=== PATIENT | male | born 1970 | race American Indian/Alaskan Native ===

== ENCOUNTER 2021-08-24 11:45 | Emergency (ER) | payer OTHER ==
[2021-08-24] MEDS ORDERED: LIDOCAINE 1% MPF 5 ML VIAL ONE (13:30)
[2021-08-24] MEDS ORDERED: TETANUS & DIPHTHERIA TOX,ADULT 0.5 ML VIAL ONE (13:31)
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
[2021-08-24] MEDS ORDERED: NITROFURAN MACRO 100 MG CAP PO ONE (14:18)
[2021-08-24] MEDS ORDERED: DOXYCYCLINE 100 MG CAP PO ONE (14:20)
[2021-08-24 14:54] VITALS: TEMP 99.1
[2021-08-24 14:55] VITALS: O2SAT 100
[2021-08-24 14:57] VITALS: BP 130/87
== END 2021-08-24 14:49 | disposition home or self-care (01) ==
LOC: ER 11:45
PROC: 0JQN0ZZ Repair Right Lower Leg Subcutaneous Tissue and Fascia, Open Approach (ICD-10-PCS; principal; 2021-08-24)
DX: S81.811A Laceration without foreign body, right lower leg, initial encounter (principal); S80.812A Abrasion, left lower leg, initial encounter; W22.8XXA Striking against or struck by other objects, initial encounter; Y92.814 Boat as the place of occurrence of the external cause; Y99.8 Other external cause status; Z23 Encounter for immunization; E11.9 Type 2 diabetes mellitus without complications
CPT/HCPCS: 90471; 90714; 99284

== ENCOUNTER 2021-09-07 11:15 | Emergency (ER) | payer OTHER ==
--- NOTE | 2021-09-07 12:16 | ER ---
Nurse's Notes [facility] Name: Ander Young Age: 50 yrs Sex: Male : 1970 Arrival Date: 09/07/2021 Time: 11:18 Bed 16 Private MD: Diagnosis: Encounter for removal of sutures Presentation: 09/07 11:36 Chief complaint: Patient states: "I need my sutures removed form my right calf and i ab2 need my left leg checked. I keep having muscle spasms." Pt denies pain. Coronavirus screen: Vaccine status: Patient reports receiving the 2nd dose of the covid vaccine. Client denies travel out of the [place] in the last 14 days. At this time, the client does not indicate any symptoms associated with coronavirus-19. Ebola Screen: Patient negative for fever greater than or equal to 101.5 degrees Fahrenheit, and additional compatible Ebola Virus Disease symptoms Patient denies exposure to infectious person. Patient denies travel to an Ebola-affected area in the 21 days before illness onset. No symptoms or risks identified at this time. Initial Sepsis Screen: Does the patient meet any 2 criteria? No. Patient's initial sepsis screen is negative. Does the patient have a suspected source of infection? No. Patient's initial sepsis screen is negative. Risk Assessment: Do you want to hurt yourself or someone else? Patient reports no desire to harm self or others. Onset of symptoms is unknown. 11:36 Method Of Arrival: Ambulatory ab2 11:36 Acuity: CL 4 ab2 Triage Assessment: 11:38 General: Appears in no apparent distress. comfortable, Behavior is calm, cooperative, ab2 appropriate for age. Pain: Denies pain. Musculoskeletal: Reports spasms to left leg. Historical: - Allergies: 11:38 No Known Allergies; ab2 - PMHx: 11:38 diabetes mellitus ; borderline; ab2 - PSHx: 11:38 None; ab2 - Immunization history:: Adult Immunizations up to date. - Social history:: Smoking status: Patient denies any tobacco usage or history of. Screenin:42 Abuse screen: Denies threats or abuse. Denies injuries from another. Nutritional bp screening: No deficits noted. Tuberculosis screening: No symptoms or risk factors identified. Fall Risk None identified. Assessment: 11:42 General: SEE TRIAGE NOTE. Neuro: Gait is steady. bp 12:29 Reassessment: PT D/C HOME AMBULATORY, DX WITH SUTURE REMOVAL. bp Vital Signs: 11:36 BP 133 / 90; Pulse 87; Resp 17; Temp 98.9(TE); Pulse Ox 99% on R/A; Weight 82 kg; ab2 Height 5 ft. 10 in. (179 cm); Pain 0/10; 11:36 Body Mass Index 25.59 (82.00 kg, 179 cm) ab2 ED Course: 11:18 Patient arrived in ED. ds1 11:38 Triage completed. ab2 11:39 Arm band placed on right wrist. ab2 11:42 Harpreet Han, RN is Primary Nurse. bp 11:42 Johan Colunga NP is PHCP. pm1 11:42 Hong Doss MD is Attending Physician. pm1 11:42 Patient has correct armband on for positive identification. Bed in low position. Call bp light in reach. Side rails up X2. 12:29 No provider procedures requiring assistance completed. bp 12:29 Patient did not have IV access during this emergency room visit. bp Administered Medications: No medications were administered Outcome: 12:16 Discharge ordered by MD. pm1 12:29 Discharged to home ambulatory. bp 12:29 Condition: stable 12:29 Discharge instructions given to patient, Instructed on discharge instructions, follow up and referral plans. wound care, Demonstrated understanding of instructions, follow-up care, wound care. 12:55 Patient left the ED. bp Signatures: Tiesha Victor ds1 Johan Colunga NP WASHING MACHINE STRIPER pm1 Harpreet Han, RN RN bp Len Reina ab2
--- NOTE | 2021-09-07 12:16 | EDPHYS ---
Physician Documentation [facility] Name: Ander Young Age: 50 yrs Sex: Male : 1970 Arrival Date: 09/07/2021 Time: 11:18 Bed 16 Private MD: ABILIO Physician Hong Doss HPI: 09/07 12:14 This 50 yrs old Male presents to ER via Ambulatory with complaints of pm1 Suture Removal. 12:14 The patient has sutures on the right ba. Previous treatment: The patient was pm1 initially treated 14 day(s) ago, the care was rendered at [facility], Treatment type: The patient's original treatment included sutures, Outpatient prescription(s): The patient was given prescription(s) for Doxycycline. Sutures/danny progress: The patient has no c/o's. The wound is well-healing with no redness, swelling, discharge, or dehiscence reported. The patient has not experienced similar symptoms in the past. The patient has not recently seen a physician. Patient presenting to the ER with complaint of suture removal. Patient was seen here 2 weeks ago for abrasion and laceration. Laceration was not fully closed due to type of injury and duration of being open. A single suture was placed in the central area of laceration to approximate the wound and allow draining and the prevention of infection. Patient reports no complaints with healing of the wound and would like the suture removed.. Historical: - Allergies: 11:38 No Known Allergies; ab2 - PMHx: 11:38 diabetes mellitus ; borderline; ab2 - PSHx: 11:38 None; ab2 - Immunization history:: Adult Immunizations up to date. - Social history:: Smoking status: Patient denies any tobacco usage or history of. ROS: 12:14 Constitutional: Negative for fever, chills, and weight loss, Cardiovascular: Negative pm1 for chest pain, palpitations, and edema, Respiratory: Negative for shortness of breath, cough, wheezing, and pleuritic chest pain, MS/Extremity: Negative for injury and deformity. 12:14 Neuro: Negative for headache, weakness, numbness, tingling, and seizure. 12:14 Skin: Negative for abscesses, cellulitis. 12:14 All other systems are negative. Exam: 12:14 Constitutional: This is a well developed, well nourished patient who is awake, alert, pm1 and in no acute distress. Head/Face: Normocephalic, atraumatic. 12:14 Back: No spinal tenderness. No costovertebral tenderness. Full range of motion. MS/ Extremity: Pulses equal, no cyanosis. Neurovascular intact. Full, normal range of motion. 12:14 Cardiovascular: Exam negative for acute changes, Rate: normal, Rhythm: regular, Pulses: no pulse deficits are appreciated. 12:14 Respiratory: Exam negative for acute changes, respiratory distress, shortness of breath. 12:14 Skin: Wound recheck: Suture laceration closure: the wound is healing well, no evidence of dehiscence, no drainage, no erythema, no swelling, Area well-healed with scar tissue. 12:14 Neuro: Exam negative for acute changes, Orientation: is normal, Mentation: is normal, Motor: is normal, moves all fours. Vital Signs: 11:36 BP 133 / 90; Pulse 87; Resp 17; Temp 98.9(TE); Pulse Ox 99% on R/A; Weight 82 kg; ab2 Height 5 ft. 10 in. (179 cm); Pain 0/10; 11:36 Body Mass Index 25.59 (82.00 kg, 179 cm) ab2 Procedures: 12:14 Suture/Staple removal: Removed 1 sutures, from right ba, site appears well healed, pm1 dressed with Neosporin, Patient tolerated well. MDM: 11:43 Patient medically screened. [facility] 12:14 Data reviewed: vital signs. Data interpreted: Pulse oximetry: on room air is 99 %. pm1 Interpretation: normal. Counseling: I had a detailed discussion with the patient and/or guardian regarding: the historical points, exam findings, and any diagnostic results supporting the discharge/admit diagnosis. Administered Medications: No medications were administered Disposition Summary: 09/07/21 12:16 Discharge Ordered Location: Home pm1 Problem: new pm1 Symptoms: have improved pm1 Condition: Stable pm1 Diagnosis - Encounter for removal of sutures pm1 Followup: pm1 - With: Emergency Department - When: As needed - Reason: Worsening of condition Followup: pm1 - With: Private Physician - When: 2 - 3 days - Reason: Recheck today's complaints, Continuance of care, Re-evaluation by your physician Discharge Instructions: - Discharge Summary Sheet pm1 - Suture Removal, Care After pm1 Forms: - Medication Reconciliation Form pm1 - Thank You Letter pm1 - Antibiotic Education pm1 - Prescription Opioid Use pm1 Addendum: 09/10/2021 07:13 Co-signature as Attending Physician, Hong Doss MD I agree with the assessment and c begum plan of care. Signatures: Hong Doss, Johan Marquez MD, cha, DIRECTOR CUSTOMER DIRECTOR CUSTOMER pm1 Len Reina
[2021-09-07 13:00] VITALS: BP 133/90; TEMP 98.9; O2SAT 99
== END 2021-09-07 12:55 | disposition home or self-care (01) ==
LOC: ER 11:15
DX: Z48.02 Encounter for removal of sutures (principal); E11.9 Type 2 diabetes mellitus without complications
CPT/HCPCS: 99281